=== PATIENT | male | born 2000 | race Caucasian/White ===

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

== ENCOUNTER 2024-01-03 00:59 | Emergency (ER) | payer OTHER, SELFPAY ==
[2024-01-03 01:01] VITALS: BP 154/81; PULSE 128; RESP 18; TEMP 36.7; O2SAT 98; BMI 25.9
--- NOTE | 2024-01-03 01:11 | RAD_ITS ---
INDICATION: injury EXAMINATION/TECHNIQUE: X-RAY - LEFT XR Wrist Min 3 Views 3 VIEWS COMPARISON: FINDINGS: BONES: No fracture demonstrated. JOINTS: No dislocation. SOFT TISSUES: Unremarkable. RAD/Wrist min 3 Views IMPRESSION: No evidence of fracture. Electronically Signed: Magaly Mcelroy MD at 2:14 EDT ,
--- NOTE | 2024-01-03 01:36 | EX.ED.UPPERE ---
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 Reported arresting individual, required 3 police officers and went to the ground he fell hurting his left wrist. No other injuries. No past medical history. He is here for work-related injury. Denies history of fractures. Prior similar symptoms: No PFSH PFSH Home Medications ?Medication ?Instructions ?Recorded ?Last Taken ?Type NK 05/25/19 Unknown History Allergy/AdvReac Type Severity Reaction Status Date / Time No Known Allergies Allergy Verified 01/03/24 01:00 Social History Smoking Status: Never smoker ROS ROS ED Cardiovascular Cardiovascular: Denies chest pain Respiratory/Chest Respiratory/Chest: Denies dyspnea Musculoskeletal Musculoskeletal: Reports extremity pain; Denies back pain or neck pain Integumentary Denies rash or wounds EXAM Physical Exam Const Vital Signs: 01/03/24 01:01 Temperature 98.1 F Temperature Source Temporal Pulse Rate 128 H Respiratory Rate 18 Blood Pressure 154/81 H Blood Pressure Mean 105 Pulse Ox 98 Oxygen Delivery Method Room Air Positive well nourished and well developed Constitutional Narrative: GCS 15 General Appearance ED: well developed and NAD HEENT Reports moist mucous membranes normocephalic and atraumatic Eyes General Eye ED: Yes normal appearance of both eyes Neck supple General: Negative for tenderness Chest Wall Chest: Negative for tenderness Resp normal respiratory effort and normal air movement Effort and Inspection: symmetric chest movement; Negative for respiratory distress Cardio regular rate, regular rhythm and no murmurs Peripheral Pulses: pulses 2+ throughout GI normal to inspection, nondistended, normoactive bowel sounds and non-tender Palpation: Negative for guarding or rebound tenderness present Back/Spine no CVA tenderness and no thoracic nor lumbar tenderness Extremity normal to inspection Extremity Narrative: Left upper extremity: No elbow tenderness. There is erythema minimal tenderness at the ulnar distally. No snuffbox pain no pain with axial load of the wrist. No deformities. No hand tenderness. Skin is intact. General Extremety ED: Yes tenderness; Negative for edema General Extremity: Negative for edema Neuro oriented x3 and no sensory deficits noted Sensorium / Orientation: awake and alert Skin no rashes or lesions noted and no wounds MDM MDM MDM Narrative Medical decision making narrative: Interventions / MDM: Differential diagnosis: Contusion, sprain Diagnosis considered but do not suspect: Fracture however clinically no pain for any fracture concerns. My EKG interpretation: N/A Imaging independently reviewed and interpreted by myself: Left wrist x-ray 3 views:clear linear lucency across the distal radius only on AP view. External documents reviewed: N/A Test considered but not ordered:N/A ED course: Patient declines any pain medicines. X-ray will be ordered for evaluation. Three-view x-ray left wrist had a clear lucency in distal radius horizontally on AP view. Clinically has no pain in this region. Therefore no clinical concerns for fracture. He declines any bracing. He did not want any work restrictions. He is given follow-up with occupational health if needed. He will use Tylenol Motrin as needed. All questions were answered. Re-evaluation: stable Disposition discussed with patient/family/significant other: Patient Case discussed with consulting clinician: N/A This note was generated with powervault dictation software. It may contain incorrect words, spelling, and punctuation that were not noted in checking the note before signing. Discharge Plan Triage Chief Complaint: Upper Extremity Injury ED Provider: Cedric Mahajan Dx/Rx/DC Orders Clinical Impression: Left wrist sprain, Work related injury Instructions: ED Wrist Sprain Prescriptions: No Action NK Primary Care Provider: Care Physician,No Primary Referrals: Care Physician,No Primary [Primary Care Provider] - Activity Restrictions/Additional Instructions: Use Tylenol or Motrin as needed. Follow-up with [facility] or occupational health as needed. Print Language: Malay Disposition Disposition: Home, Self Care Discharge Date/Time: 01/03/24 02:16
[2024-01-03 02:12] VITALS: BP 153/84; PULSE 70; RESP 18; TEMP 36.1; O2SAT 97
== END 2024-01-03 02:16 | disposition home or self-care (01) ==
PROVIDERS: Emergency Provider Emergency Medicine; Visit Provider Emergency Medicine
DX: S63.92XA Sprain of unspecified part of left wrist and hand, initial encounter (principal); W19.XXXA Unspecified fall, initial encounter; Y99.0 Civilian activity done for income or pay
CPT/HCPCS: 73110; 99282